=== PATIENT | male | born 1980 | race Caucasian/White ===

== ENCOUNTER 2017-10-23 12:09 | Emergency (ER) | payer SELFPAY ==
--- NOTE | 2017-10-23 13:19 | EDM.PDOC ---
ED HPI GENERAL MEDICAL PROBLEM - General Chief Complaint: Headache Stated Complaint: LETHARGY Time Seen by Provider: 10/23/17 13:02 Source of Information: Reports: Patient - History of Present Illness INITIAL COMMENTS - FREE TEXT/NARRATIVE: Patient is here for evaluation of malaise and headache. States that he has been overly anxious recently, had a bilateral frontal headache couple days ago which improved but now is coming back today. Today he is feeling "like crap". Denies any sinus symptoms or cough. Denies any chest pain. Denies any GI symptoms. He denies any chronic medical conditions and he is not on any medications on a regular basis. Patient states that he does not use illicit drugs or drink alcohol on a regular basis. He does use chewing tobacco. Headache Pain Score (Numeric/FACES): 5 - Related Data Allergies Allergy/AdvReac Type Severity Reaction Status Date / Time No Known Allergies Allergy Verified 10/23/17 12:26 Home Meds: Home Meds Sertraline [Zoloft] 50 mg PO DAILY #30 tab 10/23/17 [Rx] Past Medical History - Past Health History Medical/Surgical History: Denies Medical/Surgical History Social & Family History - Recreational Drug Use Recreational Drug Use: No ED ROS GENERAL - Review of Systems Review Of Systems: See Below Constitutional: Reports: Malaise, Weakness. Denies: Fever, Chills, Decreased Appetite Respiratory: Reports: No Symptoms Cardiovascular: Reports: No Symptoms GI/Abdominal: Reports: No Symptoms Musculoskeletal: Reports: No Symptoms Skin: Reports: No Symptoms Neurological: Reports: Headache. Denies: Dizziness, Numbness, Trouble Speaking , Weakness, Gait Disturbance Psychiatric: Reports: Anxiety. Denies: Suicidal Ideation - Physical Exam Exam: See Below Exam Limited By: No Limitations General Appearance: Alert, WD/WN, No Apparent Distress Eye Exam: Bilateral Eye: PERRL Ears: Normal External Exam, Normal TMs Nose: Normal Inspection, Normal Mucosa Throat/Mouth: Normal Inspection, Normal Oropharynx Head Exam: Atraumatic, Normocephalic Neck: Normal Inspection, Supple, Non-Tender Respiratory/Chest: No Respiratory Distress, Lungs Clear, Normal Breath Sounds, No Accessory Muscle Use Cardiovascular: Normal Peripheral Pulses, Regular Rate, Rhythm, No Murmur GI/Abdominal: Normal Bowel Sounds, Soft, Non-Tender Neuro Exam (Abbreviated): Alert, Oriented, Normal Cognition, No Motor/Sensory Deficits Psychiatric: Normal Affect, Normal Mood Skin Exam: Warm, Dry, Intact EKG INTERPRETATION EKG Date: 10/23/17 Time: 13:26 Rhythm: NSR Rate (Beats/Min): 69 Course - Vital Signs Last Recorded V/S: Last Vital Signs Temp 98.0 F 10/23/17 12:26 Pulse 62 10/23/17 15:15 Resp 16 10/23/17 15:15 BP 126/81 10/23/17 15:15 Pulse Ox 100 10/23/17 15:15 - Orders/Labs/Meds Orders: Active Orders 24 hr Category Date Time Status EKG 12 Lead [EKG Documentation Completion] [RC] STAT Care 10/23/17 13:19 Active DRUG SCREEN, URINE [URCHEM] Stat Lab 10/23/17 13:19 Ordered UA W/MICROSCOPIC [URIN] Stat Lab 10/23/17 13:19 Ordered Labs: Laboratory Tests 10/23/17 10/23/17 Range/Units 13:25 13:25 WBC 6.83 (4.23-9.07) K/mm3 RBC 5.59 (4.63-6.08) M/mm3 Hgb 16.3 (13.7-17.5) gm/L Hct 48.1 (40.1-51.0) % MCV 86.0 (79.0-92.2) fl MCH 29.2 (25.7-32.2) pg MCHC 33.9 (32.2-35.5) g/dl RDW Std Deviation 41.9 (35.1-43.9) fL Plt Count 206 (163-337) K/mm3 MPV 9.0 L (9.4-12.3) fl Neutrophils % (Manual) 73 H (40-60) % Band Neutrophils % 1 (0-10) % Lymphocytes % (Manual) 22 (20-40) % Atypical Lymphs % 0 % Monocytes % (Manual) 4 (2-10) % Eosinophils % (Manual) 0 L (0.8-7.0) % Basophils % (Manual) 0 L (0.2-1.2) Platelet Estimate Adequate RBC Morph Comment Normal Sodium 139 (136-145) mEq/L Potassium 3.8 (3.5-5.1) mEq/L Chloride 102 (98-107) mEq/L Carbon Dioxide 32 (21-32) mEq/L Anion Gap 8.8 (5-15) BUN 10 (7-18) mg/dL Creatinine 1.0 (0.7-1.3) mg/dL Est Cr Clr Drug Dosing 105.44 mL/min Estimated GFR (MDRD) > 60 (>60) mL/min BUN/Creatinine Ratio 10.0 L (14-18) Glucose 72 L (74-106) mg/dL Calcium 8.8 (8.5-10.1) mg/dL Total Bilirubin 0.5 (0.2-1.0) mg/dL AST 22 (15-37) U/L ALT 34 (16-63) U/L Alkaline Phosphatase 85 (46-116) U/L Troponin I < 0.017 (0.00-0.056) ng/mL C-Reactive Protein < 0.2 (<1.0) mg/dL Total Protein 6.7 (6.4-8.2) g/dl Albumin 3.6 (3.4-5.0) g/dl Globulin 3.1 gm/dL Albumin/Globulin Ratio 1.2 (1-2) TSH 3rd Generation 1.059 (0.358-3.74) uIU/mL Ethyl Alcohol 0.00 (0.00) gm% Meds: Medications Discontinued Medications Generic Name Dose Route Start Last Admin Trade Name Freq PRN Reason Stop Dose Admin Sodium Chloride 1,000 mls @ 250 mls/hr 10/23/17 13:19 10/23/17 13:40 Normal Saline IV 10/23/17 17:18 250 mls/hr ONETIME ONE Administration Ketorolac Tromethamine 30 mg 10/23/17 13:19 10/23/17 13:41 Toradol IVPUSH 10/23/17 13:20 30 mg ONETIME ONE Administration - Re-Assessments/Exams Free Text/Narrative Re-Assessment/Exam: Physical exam was essentially normal. EKG demonstrates normal sinus rhythm with rate of 69. CBC/CMP unremarkable. TSH 1.059. CRP <0.2. EtOH negative. Patient was unable to urinate for UA/drug screening. Upon further discussion it does sound as if the patient's anxiety and some depressive symptoms as well are interfering with his daily life. 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 He is not , no children and currently lives alone in [place], [place]. Options were discussed at length and patient elects to try medication for his anxiety and depression. Will start sertraline 50 mg daily. Patient will follow-up with me in the clinic or return to the emergency room if needed. 10/23/17 15:17 10/23/17 16:40 Departure - Departure Time of Disposition: 15:07 Disposition: Home, Self-Care 01 Condition: Good Clinical Impression: Frontal headache, Malaise and fatigue, Anxiety - Discharge Information Prescriptions: Sertraline [Zoloft] 50 mg PO DAILY #30 tab Instructions: Generalized Anxiety Disorder, Adult Referrals: PCP,None [Primary Care Provider] - Forms: ED Department Discharge Additional Instructions: Your lab work and EKG in the emergency room today was essentially normal. I do feel anxiety is contributing to your symptoms. I recommend that you take it easy the next 1-2 days. Start the medication, sertraline, as we discussed. One half a tablet for 6 days then 1 tablet daily. You will have to follow up with Mackenzie Vega PA-C in clinic, you may schedule this at [phone]. - My Orders Last 24 Hours: My Active Orders 10/23/17 13:19 EKG 12 Lead [EKG Documentation Completion] [RC] STAT DRUG SCREEN, URINE [URCHEM] Stat UA W/MICROSCOPIC [URIN] Stat - Assessment/Plan Last 24 Hours: My Active Orders 10/23/17 13:19 EKG 12 Lead [EKG Documentation Completion] [RC] STAT DRUG SCREEN, URINE [URCHEM] Stat UA W/MICROSCOPIC [URIN] Stat
[2017-10-23] MEDS: Sodium Chloride 0.9% 1,000 ML IV ONE (13:40)
[2017-10-23] MEDS: Ketorolac 30 MG/ML SDV IVPUSH ONE (13:41)
== END 2017-10-23 15:14 | disposition home or self-care (01) ==
LOC: JD.ED 12:09
DX: R51 Headache (principal); R53.81 Other malaise; F41.9 Anxiety disorder, unspecified; Z79.899 Other long term (current) drug therapy
CPT/HCPCS: 36415; 80053; 84443; 84484; 85007; 85027; 86140; 93005; 96361; 96374; 99284; G0480; J1885; J7040